=== PATIENT | male | born 1960 | race Caucasian/White ===

== ENCOUNTER 2024-11-27 20:23 | Emergency (ER) | payer BC, SELFPAY ==
[2024-11-27 20:25] VITALS: BP 140/79
--- NOTE | 2024-11-27 21:06 | ED.GENMED ---
History of Present Illness
General
Chief Complaint: Nose Bleed
Source: patient and spouse
Exam Limitations: none
Time Seen by Provider: 11/27/24 20:37
Nursing documentation reviewed up to this point in time: agreed with
History of Present Illness
History of Present Illness:
64-year-old male with a past medical history of AML presents to the emergency department with his for evaluation of epistaxis. Patient follows at [facility] for his AML and sees Dr. Steele for oncology. He has been dealing with anemia
and thrombocytopenia and had transfusions yesterday both platelets and packed cells. He presents today for evaluation of epistaxis�he says that he has had intermittent bleeding from the left nare all day today. He has been holding pressure and
fortunately since arrival in the ER has been hemostatic. Denies any trauma or any other acute complaints. He is not on blood thinners but, again, is thrombocytopenic.
Review of Systems
Review of Systems
All Other Systems: ROS reviewed and negative except as documented in HPI and ROS
EENT: Reports other (Epistaxis)
Phy Exam
Physical Exam
Physical Exam:
General: Well appearing and non-toxic
HEENT: protecting airway, no bleeding noted in the posterior oropharynx; on exam of the right nare he has no blood, intact nasal mucosa; on exam of the left nare he has a clot in place on the left nasal septum, no active bleeding
Neck: appears supple
CV: No evidence of cyanosis
Resp: No accessory muscle use
Abd: Non-distended
Extremities: No deformities
Neuro: Alert
Psych: Normal affect
Skin: Intact
Scores
Heart Failure Risk
Heart Failure Risk Score: Not Applicable
Heart Score for Chest Pain Patients
STEMI patient?: Not applicable
Withdrawal Assessment of Alcohol
Withdrawal Assessment Completed?: Not applicable
Course
Orders/Labs/Results
Orders:
11/27/24 20:38
Vital Signs
Initial and Last Documented VS:
Initial Vital Signs
Temp Pulse Resp BP Pulse Ox
36.7 C 82 16 140/79 97
11/27/24 20:25 11/27/24 20:25 11/27/24 20:25 11/27/24 20:25 11/27/24 20:25
Last Documented Vital Signs
Temp Pulse Resp BP Pulse Ox
36.7 C 82 16 140/79 97
11/27/24 20:25 11/27/24 20:25 11/27/24 20:25 11/27/24 20:25 11/27/24 20:25
MDM/Problems Addressed
Differential Diagnosis Includes:
Anterior epistaxis
MDM/Problems Addressed:
64-year-old male presents for evaluation of epistaxis as described above. Fortunately patient is hemostatic at time of my assessment and has been since arrival in the ER. He has a clot formed in place on the left nasal septum which appears to be
source of bleeding. I had a long discussion with the patient and his and we spoke about treatment options. At this point I am hesitant to remove clot to attempt something like cauterization given his known thrombocytopenia. I explained my
concerns to patient and and I think at this point using shared decision making we will proceed with watchful waiting. If bleeding recurs they can return to the emergency room and we can consider cautery but I did explain that there is high
likelihood he would end up requiring nasal packing. We spoke about follow-up plan and return precautions and all questions were answered.
Chronic conditions affecting care:
AML with thrombocytopenia
*Pulse Oximetry
SaO2: 97
Oxygen Mode of Delivery: Room air
Patient hypoxic: no (97%)
*Critical Care Note
Total Time (30-74mins, 75-104mins- exclusive of procedures): Not Applicable
Data Reviewed
Source: patient and spouse
ED Attending Note
-
Portions of this chart may have been created with voice recognition software.� Occasional wrong word or��sound alike� substitutions may have occurred due to the inherent limitations of voice recognition software.
Discharge Plan
Departure
Patient Disposition: Home (Routine Discharge)
Date of Disposition: 11/27/24
Time of Disposition: 21:05
Patient with high blood pressure during this ER visit?: No
Discharge Problem:
Acute anterior epistaxis
Instructions: Nosebleeds (DC)
Referrals:
Vidhya Murdock MD [Active, Otology] - As needed
Referral Note: ENT physician
Activity Restrictions/Additional Instructions:
Thank you for visiting the Emergency Department at [facility].
1. Please schedule a follow up appointment as directed. Call first thing tomorrow morning to make an appointment.
2. If indicated, please take your medications as instructed and indicated on discharge paperwork.
3. If any of your symptoms do not improve, or persist, or become more severe within 6-12 hours, please return to the emergency department for further care.
4. Please return to the emergency department if you develop a headache, neck pain/stiffness, fever greater than 100.4F, chest pain, shortness of breath, persistent nausea, vomiting, slurred speech, difficulty walking, numbness/tingling, weakness,
signs of infection or any other symptoms that are worrisome to you.
Please call [phone] if you have any questions.
Interventions
Interventions:
*Risk Screen - Suicide Last Done: 11/27/24 20:25
*General Assessment Last Done: 11/27/24 20:25
Discharge Date and Time
Print Language: [id number]
== END 2024-11-27 21:20 | disposition home or self-care (01) ==
LOC: EMR 20:23
PROVIDERS: EMERGENCY PHYSICIAN Emergency Medicine
DX: R04.0 Epistaxis (principal); C92.00 Acute myeloblastic leukemia, not having achieved remission
CPT/HCPCS: 99282